=== PATIENT | female | born 1940 | race Caucasian/White ===

== ENCOUNTER 2017-11-28 13:50 | Emergency (ER) | payer OTHER ==
[~2017-11-28] VITALS: Ht 149.9 cm; Wt 34.5 kg
[2017-11-28] MEDS ORDERED: XOPENEX HFA15 GM IH (14:00)
[2017-11-28] MEDS ORDERED: SYNTHROID88 MCG PO (14:00)
== END 2017-11-29 17:08 | disposition home or self-care (01) ==
LOC: ER 13:50
DX: J44.9 Chronic obstructive pulmonary disease, unspecified (principal); R09.02 Hypoxemia; R00.2 Palpitations; J11.1 Influenza due to unidentified influenza virus with other respiratory manifestations